=== PATIENT | male | born 1960 | race Caucasian/White ===

== ENCOUNTER 2018-10-09 20:31 | Emergency (ER) | payer OTHER ==
[2018-10-09] MEDS: LIDOCAINE 2%/EPI MPF (SDV) 20 ML VIAL INJ (22:30)
[2018-10-09] MEDS: HYDROCODONE/APAP (5/325) TAB PO (23:16)
== END 2018-10-10 05:14 | disposition home or self-care (01) ==
LOC: E/R 10-10 05:14 → FTE 20:31
DX: S01.112A Laceration without foreign body of left eyelid and periocular area, initial encounter (principal); S22.42XA Multiple fractures of ribs, left side, initial encounter for closed fracture; F17.210 Nicotine dependence, cigarettes, uncomplicated; W18.39XA Other fall on same level, initial encounter; Y92.9 Unspecified place or not applicable
CPT/HCPCS: 12014; 70450; 70480; 71100; 72125; 99284-25

== ENCOUNTER 2018-11-09 18:17 | Emergency (ER) | payer SELFPAY, OTHER | END 2018-11-09 20:39 | disposition left against medical advice (07) | LOC: E/R 18:17 | DX: Z53.21 Procedure and treatment not carried out due to patient leaving prior to being seen by health care provider (principal) ==